=== PATIENT | male | born 1990 | race Caucasian/White ===

== ENCOUNTER 2018-05-30 12:47 | Outpatient (CLI) | payer MEDICAID ==
--- NOTE | 2018-05-30 15:26 | XRAY Report ---
Procedure Date: 05/30/2018 Accession Number: [id number] / [id number] Procedure: XR - Foot 2 View RT CPT Code: FULL RESULT: EXAM: RIGHT FOOT RADIOGRAPHY EXAM DATE: 05/30/2018 01:11 PM. CLINICAL HISTORY: No known injury. Ulceration and cellulitis dorsal aspect of the right foot for one week. COMPARISON: None. TECHNIQUE: 3 views. FINDINGS: Bones: Normal. No fractures or bone lesions. Joints: Normal. No subluxations. Soft Tissues: Normal. No soft tissue swelling. IMPRESSION: Normal foot radiography. [facility]
== END 2018-05-30 12:48 | disposition home or self-care (01) ==
LOC: DI 12:47
PROVIDERS: ATTEND Internal Medicine
DX: L03.115 Cellulitis of right lower limb (principal); L97.519 Non-pressure chronic ulcer of other part of right foot with unspecified severity

== ENCOUNTER 2020-03-25 11:27 | Outpatient (CLI) | payer MEDICAID ==
--- NOTE | 2020-03-25 11:29 | XRAY Report ---
PROCEDURE: Chest 2 View X-Ray INDICATIONS: CHEST PAIN TECHNIQUE: 2 view(s) of the chest. COMPARISON: None. FINDINGS: Surgical changes and devices: None. Lungs and pleura: No pleural effusions or pneumothorax. Lungs are clear. Mediastinum: Mediastinal contours are normal. Heart size is normal. Bones and chest wall: No suspicious bony abnormalities. Soft tissues appear unremarkable. IMPRESSION: No acute disease Reviewed by: Sudheer Mora MD on 03/25/2020 11:28 AM PDT Approved by: Sudheer Mora MD on 03/25/2020 11:28 AM PDT Station ID: [id number]
== END 2020-03-25 11:28 | disposition home or self-care (01) ==
LOC: DI.S 11:27
PROVIDERS: ATTEND Physician Assistant Medical
DX: R07.89 Other chest pain (principal); F17.200 Nicotine dependence, unspecified, uncomplicated
CPT/HCPCS: 71046

== ENCOUNTER 2021-08-31 10:36 | Outpatient (CLI) | payer MEDICAID ==
--- NOTE | 2021-08-31 16:52 | XRAY Report ---
PROCEDURE: Foot 2 View RT INDICATIONS: R FOOT PX TECHNIQUE: AP and lateral weightbearing views of the foot were acquired. COMPARISON: None FINDINGS: Bones: No acute fractures or dislocations. No suspicious bony lesions. Normal calcaneal pitch angle measuring 19 degrees Soft tissues: No tibiotalar joint effusion. Achilles tendon appears normal. IMPRESSION: Right foot without acute radiographic abnormalities. No significant degenerative changes. Reviewed by: Eran Silva MD on 08/31/2021 4:51 PM PST Approved by: Eran Silva MD on 08/31/2021 4:51 PM PST Station ID: [id number]
== END 2021-08-31 23:59 | disposition home or self-care (01) ==
LOC: DI.N 10:36
PROVIDERS: ATTEND Nurse Practitioner
DX: M79.671 Pain in right foot (principal)